=== PATIENT | female | born 1990 | race Caucasian/White ===

== ENCOUNTER 2017-08-11 09:34 | Emergency (ER) | payer OTHER ==
[~2017-08-11] VITALS: Ht 160 cm; Wt 56.8 kg
[2017-08-11] MEDS ORDERED: MOTRIN400 MG PO (12:12)
[2017-08-11] MEDS ORDERED: PERCOCET 5/31 TABLET PO (12:12)
[2017-08-11 12:24] VITALS: BP 112/70
== END 2017-08-11 12:26 | disposition home or self-care (01) ==
LOC: EME 09:34
DX: S16.1XXA Strain of muscle, fascia and tendon at neck level, initial encounter (principal); V44.5XXA Car driver injured in collision with heavy transport vehicle or bus in traffic accident, initial encounter; Y92.411 Interstate highway as the place of occurrence of the external cause; M25.562 Pain in left knee; M25.561 Pain in right knee; R51 Headache; M54.9 Dorsalgia, unspecified; F17.200 Nicotine dependence, unspecified, uncomplicated
CPT/HCPCS: 70450; 72125; 99281; 99285